=== PATIENT | female | born 1985 | race Caucasian/White ===

== ENCOUNTER → 2017-08-24 | Outpatient (CLI) | payer BC, OTHER | LOC: RAD 16:05 | DX: M54.5 Low back pain (principal) ==

== ENCOUNTER → 2018-01-12 | Outpatient (CLI) | payer BC, OTHER | LOC: MRI 11:33 | DX: M51.27 Other intervertebral disc displacement, lumbosacral region (principal) ==

== ENCOUNTER 2019-04-19 13:34 | Inpatient (IN) | payer BC, OTHER ==
[~2019-04-19] VITALS: Ht 167.6 cm; Wt 77.1 kg
[2019-04-19 13:39] VITALS: BP 132/88
[2019-04-19] MEDS ORDERED: ADDERALL 30 MG30 MG PO (13:44)
[2019-04-19] MEDS ORDERED: ALPRAZOLAM 0.50.5 M1 PO (13:44)
[2019-04-19] MEDS ORDERED: ESCITALOPRAM OX20 MG PO (13:44)
[2019-04-19 14:40] LABS: URINE BILIRUBIN NEGATIVE (Negative); URINE BLOOD 2+ (Negative); URINE CLARITY CLEAR; URINE COLOR YELLOW; URINE GLUCOSE-RANDOM* NEGATIVE (Negative); URINE KETONES 3+ (Negative); URINE NITRITE-REFLEX NEGATIVE (Negative); URINE PROTEIN (DIPSTICK) NEGATIVE (Negative); URINE UROBILINOGEN 0.2 E.U./dl (0.2-1.0)
[2019-04-19 14:43] LABS: URINE LEUKOCYTES-REFLEX 1+ (Negative)
[2019-04-19 14:46] LABS: URINE REDUCING SUBSTANCE NEGATIVE
[2019-04-19 14:51] LABS: CALCIUM 9.4 mg/dL (8.5-10.1); CREATININE 0.7 mg/dL (0.6-1.0); POTASSIUM 3.6 mmol/L (3.5-5.1)
[2019-04-19 14:53] LABS: ABSOLUTE NEUTROPHILS 9.7 thou/uL (1.4-8.2); BASOPHILS 0.2 % (0.0-2.0); EOSINOPHILS 1.1 % (0.0-3.0); HEMATOCRIT 40.6 % (37.0-47.0); HEMOGLOBIN 13.6 gm/dL (12.0-15.0); LYMPHOCYTES 7.4 % (24.0-44.0); MCH 31.9 pg (26.0-34.0); MCHC 33.5 g/dL (28.0-37.0); MCV 95.2 fL (80.0-100.0); MONOCYTES 6.1 % (1.0-8.0); PLATELET COUNT 209 thou/uL (150-400); POLYS 85.2 % (36.0-66.0); RBC 4.27 mil/uL (4.20-5.00); RDW 13.1 % (10.5-14.5); WBC 11.4 thou/uL (4.0-11.0)
[2019-04-19 14:54] LABS: BACTERIA-REFLEX 1-9 Few /HPF (None Seen); CASTS None Seen /LPF (None Seen); CRYSTALS None Seen /LPF (None Seen); SQUAMOUS 0-3 Few /LPF (0-3); URINE RBC None Seen /HPF (0-2); URINE WBC-REFLEX 0-5 Rare /HPF (0-5)
[2019-04-19 14:57] LABS: ALBUMIN 4.1 g/dL (3.4-5.0); TOTAL BILIRUBIN 1.1 mg/dL (<0.1-1.0); TOTAL PROTEIN 7.7 g/dL (6.4-8.2)
[2019-04-19 18:29] VITALS: BP 107/72
[2019-04-19 18:32] VITALS: BP 121/69
[2019-04-19 18:49] VITALS: BP 125/67
--- NOTE | 2019-04-20 03:15 | NUR ---
PT TO UNIT AROUND 1800, ASSUMED PT CARE AT 1900. PT ORIENTED TO UNIT, STAFF AND USE OF CALL LIGHT. ADMISSION ASSESSMENT COMPLETED. REPORTS SEVERE PAIN IN ABDOMEN AND BACK, ONLY MANAGED WITH IV HYDROMORPHONE. NAUSEA REPORTED BUT NO VOMITING. NPO SINCE MIDNIGHT, AWAITING SURGERY TOMORROW. FLUIDS/ANTIBIOTIC INFUSING PER ORDER. UP AD KAREN IN ROOM. AT BEDSIDE. FINALLY SLEEPING, WILL CONTINUE TO MONITOR.
[2019-04-20 04:03] VITALS: BP 157/82
[2019-04-20 05:49] LABS: HEMATOCRIT 37.1 % (37.0-47.0); HEMOGLOBIN 12.3 gm/dL (12.0-15.0); MCH 32.1 pg (26.0-34.0); MCHC 33.2 g/dL (28.0-37.0); MCV 96.6 fL (80.0-100.0); RBC 3.84 mil/uL (4.20-5.00); WBC 10.4 thou/uL (4.0-11.0)
[2019-04-20 06:08] LABS: ALBUMIN 3.3 g/dL (3.4-5.0); CALCIUM 8.4 mg/dL (8.5-10.1); CREATININE 0.7 mg/dL (0.6-1.0); PHOSPHORUS 3.9 mg/dL (2.5-4.9); POTASSIUM 3.6 mmol/L (3.5-5.1)
[2019-04-20 12:43] VITALS: BP 94/54
[2019-04-20] MEDS ORDERED: ACETAMINOPHEN325 M1 PO (14:10)
[2019-04-20] MEDS ORDERED: CEFDINIR300 MG PO (14:14)
[2019-04-20] MEDS ORDERED: METRONIDAZOLE500 M4 PO (14:14)
[2019-04-20] MEDS ORDERED: IBUPROFEN 200200 M1 PO (14:14)
[2019-04-20] MEDS ORDERED: MIRALAX17 GM PO (14:14)
[2019-04-20] MEDS ORDERED: COLACE 100 MG100 MG PO (14:14)
[2019-04-20] MEDS ORDERED: OXYCODONE HCL 55 MG PO (14:17)
[2019-04-20 19:20] VITALS: BP 106/69
--- NOTE | 2019-04-20 20:17 | NUR ---
PT RETURNED FROM APPENDECTOMY. LAP SITE IS C/D/I WITH DERMABOUND. VSS. PT WAS C/O RLQ PAIN. IV PAIN MED GIVEN. WILL START PT ON CLEARS THEN ADVANCE. SCD'S IN PLACE/CIRA LITTLE ON. PT WILL STAY TONIGHT FOR PAIN CONTROL. SPOUSE AT THE BEDSIDE. WILL PLAN TO DC TOMARROW.
[2019-04-21 03:47] VITALS: BP 106/55
--- NOTE | 2019-04-21 04:56 | NUR ---
ASSUMED PT CARE AT 1900. PT REPORTS PAIN BEGINNING 7 AND DECREASED TO 4 THORUGHOUT THE NIGHT. MANAGED WITH SCHDULED PAIN MEDS. PT STILL GROGGY AT BEGINING OF SHIFT, BUT A LOT MORE ALERT NOW. TRIED TO EAT BUT HAS DECREASED APPETITE. LAP SITES DRY AND INTACT. PT REPORTED EPISODE OF THROBBING/SPASMS IN LLQ THAT STOPPED AFTER A FEW MINUTES. FLUIDS INFUSING PER ORDER. SLEPT BETTER TONIGHT WITH AT BEDSIDE.
[2019-04-21 08:48] VITALS: BP 102/54
[2019-04-21 08:53] VITALS: BP 106/55
[2019-04-21 09:03] VITALS: BP 102/54
--- NOTE | 2019-04-21 09:56 | NUR ---
PATIENT CARE ASSUMED AT 0700.A&Ox4. PT UP AT KAREN IN ROOM. PAIN MANAGED WELL WITH TYLENOL. PAIN LAP SITE ARE PRESENT WITH NO DRAINAGE. NO BM YET. PT IS DISCHARGING TO HOME WITH . SCRIPTS GIVEN. PAPERWORK SIGNED. PATIENT UNDERSTAND DISCHARGE INFORMATION. CALL LIGHT WAS IN REACH. MORNING MEDICATIONS GIVEN.
--- NOTE | 2019-04-24 10:09 | PATH ---
[facility] [address] [place] [address] PATHOLOGY RPT PROCEDURE Name: SHELTON SOMERS Room #: 441-P DIS IN M.R.#: [id number] Admission: 04/19/19 Date of : 89 Discharge: 04/21/19 Report #: [id number] Path Case #: [id number] [facility] Accession Number: [id number] . 01 Material submitted: . appendix - APPENDIX . 01 Clinical history: . Acute appendicitis . 02 Diagnosis: Appendix, appendectomy: - Marked acute appendicitis along with marked acute serositis. (IUV:pit 04/21/2019) QTP 04/21/2019 1321 Local . 02 Electronically signed: . Lila Ernst MD, Pathologist NPI- [id number] . 01 Gross description: . The specimen is received in formalin, labeled "Shelton Somers, appendix" and consists of an appendix measuring 8.4 cm in length and up to 1.4 cm in diameter with mesoappendix measuring 2.2 cm thick. The serosa is pink-chavarria with extensive hemorrhage/fibrous adhesions. The margin is closed with a line of jayson and inked black. Sectioning reveals a dilated hemorrhagic lumen containing fecal material and no gross lesions. [employer]st sections are submitted in A1-A2. (SDY; 04/20/2019) SYU/SYU 04/20/2019 [facility]1 Local . 02 Pathologist provided ICD-10: K35.80, K65.8 . 02 CPT . 133317 Specimen Comment: A courtesy copy of this report has been sent to [phone], [phone] Specimen Comment: [phone] Specimen Comment: Report sent to / DR GUTIÉRREZ Performed at: [address] [id number] MD Gregorio Duncan MD Phone: [phone] Performed at: [address] [id number] [address] [address] PATHOLOGY RPT PROCEDURE Name: SHELTON SOMERS Room #: 441-P DIS IN M.R.#: [id number] Admission: 04/19/19 Date of : 89 Discharge: 04/21/19 Report #: [id number] Path Case #: [id number] MD Lila Ernst MD Phone: [phone]
== END 2019-04-21 09:59 | disposition home or self-care (01) | DRG 343 ==
LOC: ER 13:34 → EROBS 17:00 → 4S 17:00
PROVIDERS: Emergency Medicine; ADMIT Surgery
PROC: 0DTJ4ZZ Resection of Appendix, Percutaneous Endoscopic Approach (ICD-10-PCS; principal; 2019-04-20)
DX: K35.80 Unspecified acute appendicitis (principal); Z79.899 Other long term (current) drug therapy
CPT/HCPCS: 10195; 50010; 50101; 50249; 50411; 50445; 50558; 50739; 50740; 51489; 52265; 53307; 53310; 53312; 54022; 54118; 56525; 56526; 70005